=== PATIENT | male | born 1970 | race Caucasian/White ===

== ENCOUNTER 2018-09-14 10:18 | Emergency (ER) | payer OTHER ==
[~2018-09-14] VITALS: Ht 188 cm; Wt 79.4 kg
== END 2018-09-14 11:10 | disposition home or self-care (01) ==
LOC: ED 10:18
DX: M79.672 Pain in left foot (principal); F17.200 Nicotine dependence, unspecified, uncomplicated; Z91.018 Allergy to other foods
CPT/HCPCS: 73630; 99283

== ENCOUNTER 2025-02-10 14:07 | Emergency (ER) | payer BC, OTHER | END 2025-02-10 20:18 | disposition home or self-care (01) | LOC: ED 14:07 | DX: J44.1 Chronic obstructive pulmonary disease with (acute) exacerbation (principal); F17.200 Nicotine dependence, unspecified, uncomplicated; Z88.8 Allergy status to other drugs, medicaments and biological substances; Z91.018 Allergy to other foods ==

== ENCOUNTER 2025-03-16 07:08 | Day surgery (SDC) | payer BC, OTHER ==
[2025-03-08 12:01] VITALS: BP 116/77
[~2025-03-16] VITALS: Ht 182.9 cm; Wt 75.0 kg
[~2025-03-16 07:08] MED LIST: IBLOOD GLUCOSE TEST STRIP 1 EA TEST VI PRN; IPRAT-ALBUT 0.5-3 ML INH; LACTATED RINGER'S 1,000 ML IV SCH; LIDOCAINE HCL 1% 5 ML SDV INJ ONE; PREDNISONE20 MG PO; SPIRIVA18 MCG INH; VENTOLIN HFA18 GM INH
[2025-03-16 07:21] VITALS: BP 122/88
[2025-03-16] MEDS ORDERED: LIDOCAINE HCL 2% 5 ML SDV ONE (08:03)
[2025-03-16] MEDS ORDERED: LACTATED RINGER'S 1,000 ML IV ONE (10:16)
[2025-03-16] MEDS ORDERED: ALBUTEROL/IPRATROPIUM 3 ML NEB INH ONE (11:15)
[2025-03-16 11:57] VITALS: BP 123/72
[2025-03-16 13:41] VITALS: BP 123/70
[2025-03-17 06:48] VITALS: BP 119/79
== END 2025-03-16 13:45 | disposition home or self-care (01) ==
LOC: DS 07:08
PROVIDERS: ATTEND Surgery
PROC: 0DBC8ZX Excision of Ileocecal Valve, Via Natural or Artificial Opening Endoscopic, Diagnostic (ICD-10-PCS; 2025-03-16)
PROC: 3E0H8KZ Introduction of Other Diagnostic Substance into Lower GI, Via Natural or Artificial Opening Endoscopic (ICD-10-PCS; 2025-03-16)
PROC: 0DB98ZX Excision of Duodenum, Via Natural or Artificial Opening Endoscopic, Diagnostic (ICD-10-PCS; 2025-03-16)
PROC: 0DB78ZX Excision of Stomach, Pylorus, Via Natural or Artificial Opening Endoscopic, Diagnostic (ICD-10-PCS; 2025-03-16)
PROC: 0DB48ZX Excision of Esophagogastric Junction, Via Natural or Artificial Opening Endoscopic, Diagnostic (ICD-10-PCS; 2025-03-16)
PROC: 0DBK8ZX Excision of Ascending Colon, Via Natural or Artificial Opening Endoscopic, Diagnostic (ICD-10-PCS; principal; 2025-03-16 09:15)
PROC: 0DBN8ZX Excision of Sigmoid Colon, Via Natural or Artificial Opening Endoscopic, Diagnostic (ICD-10-PCS; 2025-03-16 09:15)
DX: Z12.11 Encounter for screening for malignant neoplasm of colon (principal); D12.0 Benign neoplasm of cecum; D12.2 Benign neoplasm of ascending colon; D12.5 Benign neoplasm of sigmoid colon; K63.89 Other specified diseases of intestine; K22.10 Ulcer of esophagus without bleeding; K29.70 Gastritis, unspecified, without bleeding; K29.80 Duodenitis without bleeding; K44.9 Diaphragmatic hernia without obstruction or gangrene; J44.9 Chronic obstructive pulmonary disease, unspecified; Z87.891 Personal history of nicotine dependence; Z79.899 Other long term (current) drug therapy; Z88.8 Allergy status to other drugs, medicaments and biological substances
CPT/HCPCS: 00813; 36415; 71045; 87077; 88305; 88312; J1790; J2003; J2405; J2704; J7121